=== PATIENT | female | born 1995 | race Two or more races ===

== ENCOUNTER 2017-11-29 08:55 | Outpatient (CLI) | payer MEDICAID ==
--- NOTE | 2017-11-29 13:19 | Ultrasound Report ---
Procedure Date: 11/29/2017 Accession Number: [id number] / [id number] Procedure: US - Head or Neck Soft Tissue CPT Code: FULL RESULT: EXAM: NECK ULTRASOUND EXAM DATE: 11/29/2017 09:51 AM. CLINICAL HISTORY: CERVICAL LYMPHADENOPATHY, ANTERIOR, LEFT. COMPARISON: None. TECHNIQUE: Real-time sonographic imaging was performed by the home health caregiver utilizing color-flow. Multiple loss prevention representative static images were saved for review. FINDINGS IMPRESSION: No enlarged cervical lymph nodes, mass, or fluid collection identified at the site of clinical concern in the left anterior neck. No abnormality identified. [facility]
== END 2017-11-29 08:56 | disposition home or self-care (01) ==
LOC: DI 08:55
PROVIDERS: ATTEND Nurse Practitioner
DX: R59.0 Localized enlarged lymph nodes (principal)
CPT/HCPCS: 76536

== ENCOUNTER 2022-06-06 10:17 | Emergency (ER) | payer BC ==
[2022-06-06 10:31] VITALS: BP 106/62
--- NOTE | 2022-06-06 10:55 | XRAY Report ---
PROCEDURE: Foot 3 View RT INDICATIONS: Trauma right foot pain TECHNIQUE: 3 views of the foot were acquired. COMPARISON: FINDINGS: Bones: No fractures or dislocations. No suspicious bony lesions. First MTP osteotomy and bunionect maicol. Soft tissues: No tibiotalar joint effusion. Achilles tendon appears normal. IMPRESSION: No acute bony abnormality. Reviewed by: Obed De Santiago on 06/06/2022 10:54 AM [facility] Approved by: Obed De Santiago on 06/06/2022 10:54 AM [facility] Station ID: [id number]
--- NOTE | 2022-06-06 12:19 | ED Physician Documentation ---
PD HPI UPPER EXT INJURY - Stated complaint Stated Complaint: R FOOT INJ - Chief complaint Chief Complaint: Trauma Ext - History obtained from History obtained from: Patient - Additonal information Additional information: She fell down a few stairs this morning. She is kind of sore all over but has more significant pain in the area of the proximal big toe of the right foot. She did have a bunionectomy and osteotomy in high school there. PD PAST MEDICAL HISTORY - Allergies Allergies/Adverse Reactions: Allergies Allergy/AdvReac Type Severity Reaction Status Date / Time No Known Drug Allergies Allergy Verified 06/06/22 10:42 PD ED PE NORMAL - Vitals Vital signs reviewed: Yes - General General: Alert and oriented X 3, No acute distress - Neck Neck: Supple, no meningeal sign, No bony TTP, C-Spine cleared by NEXUS criteria - Extremities Extremities: Other (Mild tenderness of the distal first metatarsal of the right foot and proximal great toe without deformity. No other foot or ankle tenderness.) - Neuro Neuro: Alert and oriented X 3, Normal speech Results - Vitals Vitals: Vital Signs - 24 hr 06/06/22 10:28 Temperature 36.5 C Heart Rate 98 Respiratory 16 Rate Blood Pressure 106/62 O2 Saturation 100 Oxygen O2 Source Room air - Rads (name of study) Three-view x-ray of the right foot is negative Radiology: Final report received, EMP read indepedently Departure - Departure Disposition: 01 Home, Self Care Clinical Impression: Sprain of toe, great, right Condition: Good Record reviewed to determine appropriate education?: Yes Instructions: ED Sprain Toe Comments: Tylenol and/or ibuprofen as needed for pain. Follow-up with your doctor for recheck if not improved in 1 week.
== END 2022-06-06 12:39 | disposition home or self-care (01) ==
LOC: ED 10:17
DX: S93.501A Unspecified sprain of right great toe, initial encounter (principal); W10.9XXA Fall (on) (from) unspecified stairs and steps, initial encounter
CPT/HCPCS: 99283